=== PATIENT | male | born 1955 | race Caucasian/White ===

== ENCOUNTER 2017-05-03 19:40 | Emergency (ER) | payer MEDICARE ==
[2017-05-03] MEDS ORDERED: SODIUM CHLORIDE 0.9% 1000ML 1,000 ML IVS ONE (20:53)
[2017-05-03] MEDS ORDERED: MULTIPLE VITAMIN INJ 10 ML, THIAMINE HCL INJ 100 MG in SODIUM CHLORIDE 0.9% 1000ML 1,00... IVS SCH (21:00)
[2017-05-03] MEDS ORDERED: THIAMINE HCL INJ 100 MG/ML VIAL ONE (21:04)
[2017-05-03] MEDS ORDERED: SODIUM CHLORIDE 0.9% 1000ML 1,000 ML ONE ×2 (21:04→23:19)
[2017-05-03] MEDS ORDERED: MULTIPLE VITAMIN 10 ML VIAL ONE (21:05)
--- NOTE | 2017-05-03 23:31 | ED.PDOC ---
History of Present Illness - General Chief Complaint: General Stated Complaint: "I can't walk" purple legs Time Seen by Provider: 05/03/17 19:59 Source: patient Exam Limitations: intoxication - History of Present Illness Initial Comments: Patient presents with several days of bilateral LE pain. It got worse today so he called EMS. The pain is from the knees to the feet and aching/burning in nature. Worse with movement, better with rest. He said that he has had a previous episode but is not sure what the doctors did for him. He reports having "emphysema" as well as daily tobacco and alcohol use. Denies any medications. Patient is a poor historian and cannot give more information than that. Last drink of alcohol was 2-3 beers today. Timing/Duration: changing over time, other - 3-4 days Severity: moderate Improving Factors: rest Worsening Factors: movement Associated Symptoms: denies symptoms Allergies/Adverse Reactions: Allergies NO KNOWN ALLERGY Allergy (Verified 05/03/17 20:37) Review of Systems - Review of Systems Constitutional: States: no symptoms reported EENTM: States: no symptoms reported Respiratory: States: no symptoms reported Cardiology: States: no symptoms reported Gastrointestinal/Abdominal: States: no symptoms reported Genitourinary: States: no symptoms reported Musculoskeletal: States: see HPI Skin: States: other - erythmatic bilateral LE Neurological: States: no symptoms reported Endocrine: States: no symptoms reported Hematologic/Lymphatic: States: no symptoms reported Unable to Obtain Due To: other Past Medical History (General) - Patient Medical History Hx Asthma: No Hx of COPD: Yes Hx Congestive Heart Failure: No Hx Hypertension: Yes Hx Diabetes: No Hx Gastroesophageal Reflux: Yes Hx MRSA: Yes MRSA Source:: skin Surgical History: other - Vaccination History Hx Tetanus, Diphtheria Vaccination: No Hx Influenza Vaccination: No Hx Pneumococcal Vaccination: No - Social History Hx Tobacco Use: Yes Hx Alcohol Use: Yes Family Medical History - Family History Mother Family History: Unknown Living Status: Physical Exam - Physical Exam General Appearance: Alert Eye Exam: bilateral normal Respiratory: other - expiratory rhonchi in all lung delgdao, distant wheezes Cardiovascular/Chest: regular rate, rhythm Peripheral Pulses: radial,right: 1+, radial,left: 1+, femoral,right: 1+, femoral ,left: 1+, popliteal,right: 1+, popliteal,left: 1+, dorsalis pedis,right: 0, dorsalis pedis,left: 1+, posterior tibialis,right: 0, posterior tibialis,left: 1 + Gastrointestinal/Abdominal: normal bowel sounds, non tender, soft Extremity: other - non-blanching erythmatic LE bilaterally, toes are cool to touch but have capillary refill and full sensation Neurologic: transition manager II-XII nml as tested, no motor/sensory deficits, oriented x 3 Skin Exam: other - extensive scattered bruising, erythema in bilateral LE as stated above Progress - Progress Progress: 05/03/17 23:36 DWAIN 0.81 on the left. Unable to get sbp on the right LE. Patient transferred to [facility] for urgent LE U/S Laboratory Tests 05/03/17 05/03/17 05/03/17 20:15 20:15 20:15 WBC 3.6 L RBC 3.35 L Hgb 11.9 L Hct 34.2 L MCV 102.3 H MCH 35.5 H MCHC 34.7 RDW 17.8 H Plt Count 131 MPV 7.8 Absolute Neuts (auto) 2.40 Absolute Lymphs (auto) 0.90 L Absolute Monos (auto) 0.20 Absolute Eos (auto) 0.00 Absolute Basos (auto) 0.00 Neutrophils % 67.3 Lymphocytes % 25.3 Monocytes % 6.6 Eosinophils % 0.2 L Basophils % 0.6 Sodium 126 L Potassium 3.3 L Chloride 88 L Carbon Dioxide 27 Anion Gap 14.3 BUN 7 Creatinine 0.66 BUN/Creatinine Ratio 10.6 Random Glucose 90 Serum Osmolality 250.9 L* Calcium 7.7 L Total Bilirubin 2.3 H* AST 59 H ALT 19 Alkaline Phosphatase 157 H Serum Total Protein 6.1 L Albumin 1.9 L Globulin 4.2 H Albumin/Globulin Ratio 0.5 L Ethyl Alcohol < 5.40 Departure - Departure Clinical Impression: Lower extremity pain, bilateral Disposition: Transfer to Hospital Condition: Fair Departure Forms: ED Discharge - Pt. Copy, Patient Portal Self Enrollment Diet: other - NPO Activity: as per physical therapy
[2017-05-04 00:08] VITALS: BP 134/105; TEMP 97.9; O2SAT 97
== END 2017-05-04 00:08 | disposition short-term general hospital (02) ==
LOC: ER 19:40
DX: M79.662 Pain in left lower leg (principal); M79.661 Pain in right lower leg; J44.9 Chronic obstructive pulmonary disease, unspecified; I10 Essential (primary) hypertension; K21.9 Gastro-esophageal reflux disease without esophagitis; F17.200 Nicotine dependence, unspecified, uncomplicated; Z86.14 Personal history of Methicillin resistant Staphylococcus aureus infection
CPT/HCPCS: 36415; 80053; 80320; 85025; J3411; J7030